=== PATIENT | male | born 1965 | race Caucasian/White ===

== ENCOUNTER 2025-01-17 14:16 | Outpatient (REF) | payer OTHER, SELFPAY | END 2025-01-17 14:17 | disposition home or self-care (01) | LOC: HO.LNP 14:16 | PROVIDERS: Visit Provider Student in an Organized Health Care Education/Training Program | DX: B35.3 Tinea pedis (principal); L60.2 Onychogryphosis; L60.3 Nail dystrophy | CPT/HCPCS: 87101; 87220; 88304; 88312 ==

== ENCOUNTER 2025-01-17 14:16 | Outpatient (AMB) | payer OTHER, SELFPAY ==
--- NOTE | 2025-01-17 14:17 | A.OFFVIS_ITS ---
Intake Visit Reasons: big toe red painfull Intake Note: Brad is a 59 year old male who presents today as a new patient for a evaluation of his left great toe. Patient states that his pain ongoing pain for about a month. He noticed his toe becoming red and inflamed. He states his pain has gotten worse these past 2 days. Allergies No Known Allergies Allergy (Verified 01/17/25 14:19) [facility] HPI big toe red painfull: Details: 59-year-old male past medical history of nephrectomy presents for painful left big toenail. He states he has pain while ambulating. Pain worsened over the past 2 weeks. He has a history of ingrown fungal toenail infections. He had a total nail avulsion several years ago and then repeated 2 years ago. He notes that he tried topical medications in the past which have not helped. 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 dystrophic discolored thickened elongated nails x3 left foot and x2 right foot including bilateral hallux. Left hallux nail medial border mildly ingrown, lifting distal 20%, and severely thickened. Neuro: Protective sensation grossly intact to bilateral lower extremities MSK: Moderate tenderness on palpation of the dorsal aspect of the left hallux nail. 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 * Discussed treatment options including topical treatment versus oral antifungal medications. * Explained that oral antifungals such as terbinafine (Lamisil) may cause gastrointestinal upset, headache, rash, taste disturbances, and hepatotoxicity. Baseline and monthly liver function monitoring is recommended during therapy. Patients should be advised to report symptoms such as jaundice, dark urine, or persistent nausea. * Rx CMP * Debrided left hallux nail and performed slant back procedure. * Follow up in 2 weeks. may require total nail avulsion (2) Tinea pedis: Code(s): B35.3 - Tinea pedis Category: Medical Qualifiers: Laterality: bilateral Qualified Code(s): B35.3 - Tinea pedis Plan: * Rx Clotrimazole ointment Orders: Orders Fungus Cult Hair/Skin/Nail Today L60.3 - Nail dystrophy Surgical Today L60.3 - Nail dystrophy Comprehensive Met. Panel Today L60.2 - Onychogryphosis Medications: New clotrimazole 1% (Lotrimin AF (clotrimazole)) 1 appl topical BID 30 grams 3RF athlete's foot 4 weeks B35.3 - Tinea pedis Coding Level of Care Code New Pt Level 4 (53668) Diagnoses Dystrophia unguium L60.3 Tinea pedis of both feet B35.3 Laterality: bilateral Time Spent (min) 35
--- OUTSIDE RECORDS SUMMARY | 2025-01-17 19:11 | XMS_ITS ---
Author Name [facility] Organization Unknown Care Team Organization Name Specialty Phone Email Start Date End [facility]
--- OUTSIDE RECORDS SUMMARY | 2025-01-17 19:11 | XMS_ITS | Clinical Summary ---
Author Organization [facility] Address [address] [place] [address] Phone Care Team Providers Care Multiple Wire Sawyer Name Role Phone Myla Nye MD Primary Care Provider [phone] Social History Tobacco Use Types Packs/Day Years Used Date Smoking Tobacco: Never Smokeless Tobacco: Never Sex and Gender Information Value Date Recorded Sex Assigned at Not on file Legal Sex Male 1:04 AM EST Gender Identity Not on file Sexual Orientation Not on file Obstetrics History Plan of Treatment Health Maintenance Due Date Last Done Comments Colorectal Cancer Screening: Colonoscopy 1965 DTaP,Tdap,and Td Vaccines (1 - Tdap) 11/17/1982 Pneumococcal Vaccine: 50+ Years (1 of 2 - PCV) 11/17/1982 Zoster Vaccines (1 of 2) 11/17/1982 Cholesterol Screening (Lipid Panel) 01/27/2022 HIV Screening 01/27/2022 Hepatitis C Screening 01/27/2022 Social Influencers of Health Screening 01/27/2022 Depression Screening 02/25/2024 COVID-19 Vaccine ( season) 2024 03/13/2024, 11/30/2022, 11/14/2021, Additional history exists Influenza Vaccine (#1) 2024 RSV Immunization Adult Patients (1 - 1-dose 75+ series) 11/17/2038 HIB Vaccines Aged Out No longer eligi ble based on patient's age to complete this topic HPV Vaccines Aged Out No longer eligi ble based on patient's age to complete this topic Hepatitis A Vaccines Aged Out No long er eligible based on patient's age to complete this topic Hepatitis B Vaccines Aged Out No long er eligible based on patient's age to complete this topic IPV Vaccines Aged Out No longer eligi ble based on patient's age to complete this topic MMR Vaccines Aged Out No longer eligi ble based on patient's age to complete this topic Meningococcal ACWY Vaccine Aged Out N o longer eligible based on patient's age to complete this topic Meningococcal B Vaccine Aged Out No l onger eligible based on patient's age to complete this topic RSV Immunization Patients Under 20 months Aged Out No longer eligible based on patient's age to complete this topic Varicella Vaccines Aged Out No longer eligible based on patient's age to complete this topic Insurance [facility] Care Teams Multiple Wire Sawyer Relationship Specialty Start Date End Date Myla Nye MD [address] [place] [phone] PCP - General 03/21/23
== END 2025-01-17 14:52 | disposition home or self-care (01) ==
PROVIDERS: Visit Provider Student in an Organized Health Care Education/Training Program
DX: L60.3 Nail dystrophy (principal); B35.3 Tinea pedis
CPT/HCPCS: 99204

== ENCOUNTER 2025-01-24 13:48 | Outpatient (REF) | payer OTHER, SELFPAY ==
[2025-01-24 19:55] LABS: Alanine Aminotransferase 44 U/L (0-40); Albumin Level 4.6 g/dL (3.5-5.0); Alkaline Phosphatase 102 U/L (39-117); Anion Gap 13 (12-20); Aspartate Amino Transferase 32 U/L (5-37); Blood Urea Nitrogen 13 mg/dL (9-16); Calcium 9.7 mg/dL (8.4-10.2); Carbon Dioxide 28 mmol/L (22-29); Chloride 104 mmol/L (96-108); Estimated Glomerular Filt Rate 57; Potassium 4.1 mmol/L (3.3-5.1); Sodium 141 mmol/L (135-145); Total Protein 8.0 g/dL (6.5-8.0)
== END 2025-01-24 13:49 | disposition home or self-care (01) ==
LOC: HO.HKASLDS 13:48
PROVIDERS: PCP Internal Medicine; Visit Provider Student in an Organized Health Care Education/Training Program
DX: L60.2 Onychogryphosis (principal)
CPT/HCPCS: 36415; 80053

== ENCOUNTER 2025-01-31 14:07 | Outpatient (AMB) | payer OTHER, SELFPAY ==
[2025-01-31 14:37] VITALS: BMI 29.6
--- NOTE | 2025-01-31 14:37 | A.OFFVIS_ITS ---
Vital Signs 01/31/25 14:37 Height 6 ft Weight 218 lb BMI 29.6 Intake Visit Reasons: fu damian Intake Note: Brad is a 59 year old male who presents to the office today for a 2 week follow up for Dystrophia unguium . At last visit Debrided left hallux nail and performed slant back procedure. Nail biopsy was performed of left hallux nail. Results in chart. Labs completed. Pt states he is no longer experiencing any pain at this time and he has been using the clotrimazole. Allergies No Known Allergies Allergy (Verified 01/31/25 14:37) HPI HPI fu damian: Details: 59-year-old male past medical history of nephrectomy returns for painful left bi g toenail. No longer having pain to the nail. He has been applying the topical anti-fungal cream to his foot, has not yet seen improvement. History: He has a history of ingrown fungal toenail infections. He had a total nail avulsion several years ago and then repeated 2 years ago. He notes that he tried topical medications in the past which have not helped. 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 dystrophic discolored thickened elongated nails x3 left foot and x2 right foot including bilateral hallux. Left hallux nail medial border stable with no lifting. Neuro: Protective sensation grossly intact to bilateral lower extremities MSK: Moderate tenderness on palpation of the dorsal aspect of the left hallux nail. 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 Pending culture. * Discussed treatment options including topical treatment versus oral antifungal medications. * Explained that oral antifungals such as terbinafine (Lamisil) may cause gastrointestinal upset, headache, rash, taste disturbances, and hepatotoxicity. Baseline and monthly liver function monitoring is recommended during therapy. Patients should be advised to report symptoms such as jaundice, dark urine, or persistent nausea. * Due to border-line/elevated LFTs, recommended pursuing topical treatment at this time. * Follow up in 1 month. (2) Tinea pedis: Code(s): B35.3 - Tinea pedis Category: Medical Qualifiers: Laterality: bilateral Qualified Code(s): B35.3 - Tinea pedis Plan: * Discontinue Clotrimazole ointment * Rx Lamisil topical Medications: New terbinafine HCl 1% (Lamisil AT) 1 appl topical BID 15 grams 3RF athlete's foot B35.3 - Tinea pedis, L60.3 - Nail dystrophy ciclopirox 8% Apply to fungal toenails daily. Remove build-up at the end of the week. 1 appl topical BEDTIME 6.6 mL 3RF 4 months Coding Level of Care Code Est Pt Level 3 (09065) Diagnoses Dystrophia unguium L60.3 Tinea pedis of both feet B35.3 Laterality: bilateral Time Spent (min) 25
--- OUTSIDE RECORDS SUMMARY | 2025-01-31 23:03 | XMS_ITS | Clinical Summary ---
Author Organization [facility] Address [address] [place] [address] Phone Care Team Providers Care Liquor Gallery Operator Name Role Phone Myla Nye MD Primary Care Provider [phone] Social History Tobacco Use Types Packs/Day Years Used Date Smoking Tobacco: Never Smokeless Tobacco: Never Sex and Gender Information Value Date Recorded Sex Assigned at Not on file Legal Sex Male 1:04 AM EST Gender Identity Not on file Sexual Orientation Not on file Plan of Treatment Health Maintenance Due Date [...] patient's age to complete this topic Insurance [facility] Care Teams Liquor Gallery Operator Relationship Specialty Start Date End Date Myla Nye MD [address] [place] [phone] PCP - General 03/21/23
== END 2025-01-31 14:57 | disposition home or self-care (01) ==
LOC: HO.HPODS 14:08
PROVIDERS: Visit Provider Student in an Organized Health Care Education/Training Program
DX: L60.3 Nail dystrophy (principal); B35.3 Tinea pedis
CPT/HCPCS: 99213